=== PATIENT | male | born 1975 | race Caucasian/White ===

== ENCOUNTER 2024-03-22 16:56 | Emergency (ER) | payer BC ==
[~2024-03-22] VITALS: Ht 180.3 cm; Wt 9.1 kg
[2024-03-22] MEDS ORDERED: Diphth,Pertuss(Acell),Tet Vac 0.5 ML VIAL IM ONE (17:55)
[2024-03-22] MEDS ORDERED: Ibuprofen 400 MG Tab PO ONE (19:25)
== END 2024-03-22 19:39 | disposition home or self-care (01) ==
LOC: ER 16:56
DX: S61.212A Laceration without foreign body of right middle finger without damage to nail, initial encounter (principal); S61.214A Laceration without foreign body of right ring finger without damage to nail, initial encounter; S61.216A Laceration without foreign body of right little finger without damage to nail, initial encounter; W22.8XXA Striking against or struck by other objects, initial encounter; Z23 Encounter for immunization
CPT/HCPCS: 73130; 90715; A9270